=== PATIENT | male | born 1960 | race African-American/Black ===

== ENCOUNTER 2016-07-26 23:18 | Emergency (ER) | payer OTHER ==
[~2016-07-26] VITALS: Ht 167.6 cm; Wt 91.2 kg
[2016-07-26] MEDS ORDERED: LISINOPRIL10 MG ORAL (23:29)
[2016-07-26] MEDS ORDERED: METFORMIN HCL500 M1 ORAL (23:29)
[2016-07-26 23:30] VITALS: BP 136/85
[2016-07-27 00:29] LABS: APPEARANCE,URINE CLEAR; KETONES,URINE NEGATIVE (NEGATIVE); LEUKOCYTE ESTERASE ,URINE NEGATIVE (NEGATIVE); NITRITE,URINE NEGATIVE (NEGATIVE); PH,URINE 6 (4.5-8.0); PROTEIN,URINE NEGATIVE (NEGATIVE); UROBILINOGEN,URINE NORMAL MG/DL (0.0-1.0)
[2016-07-27] MEDS ORDERED: Mylanta II UD 30ml ORAL ONE (00:30)
[2016-07-27] MEDS ORDERED: PEPCID20 MG ORAL (01:05)
[2016-07-27 01:20] VITALS: BP 138/79
--- NOTE | 2016-07-27 02:25 | Emergency Room Report ---
History of Present Illness General Chief Complaint: Abdominal Pain Source: Patient Present Illness HPI [id number] here for "STD check" after condom broke 3 weeks ago. Denies previous history of STDs, dysuria, discharge, polyuria. Allergies: Coded Allergies: No Known Allergies (Unverified , 07/26/16) Patient History Past Medical History: none Past Surgical History: none Pertinent Family History: none Social History: Denies: alcohol use, drug use, smoking Immunizations: UTD Reviewed Nursing Documentation: PMH: Agreed, PSxH: Agreed Nursing Documentation-PMH Past Medical History: No History, Except For Hx Hypertension: Yes Review of Systems All Other Systems: negative except mentioned in HPI Physical Exam Vital Signs Date Time Temp Pulse Resp B/P Pulse Ox O2 Delivery O2 Flow Rate FiO2 07/26/16 23:22 98.4 89 16 136/85 95 Room Air Sp02 EP Interpretation: reviewed, normal General Appearance: normal inspection, well appearing, no apparent distress, alert Head: atraumatic ENT: normal ENT inspection, hearing grossly normal, normal voice Neck: normal inspection, full range of motion, supple, no bony tend Respiratory: normal inspection, lungs clear, normal breath sounds, no respiratory distress, no retraction, no wheezing Cardiovascular #1: regular rate, rhythm, no edema Gastrointestinal: normal inspection, normal bowel sounds, non tender, soft, no guarding, no hernia Genitourinary: no CVA tenderness Musculoskeletal: normal inspection, back normal, normal range of motion, Velasquez' s Sign negative Neurologic: normal inspection, alert, oriented x3, responsive, book mender III-XII nml as tested, speech normal Psychiatric: normal inspection, judgement/insight normal, mood/affect normal Skin: normal inspection, normal color, no rash Lymphatic: normal inspection Medical Decision Making Diagnostic Impression: Primary Impression: Abdominal pain Qualified Codes: R10.84 - Generalized abdominal pain Additional Impression: Possible exposure to STD ER Course UA grossly negative Asymptomatic Advised to go to STD clinic or PMD On DC, mentions today stomach discomfort after taking motrin. Associated with bloating, gas. No actual abd pain, nausea/vomiting On exam, non-tender, non-focal PO Maalox, pepcid given in ED with improvement Rx pepcid DC home Last Vital Signs Date Time Temp Pulse Resp B/P Pulse Ox O2 Delivery O2 Flow Rate FiO2 07/27/16 01:20 98.4 84 15 138/79 95 Room Air Status: improved Disposition: HOME, SELF-CARE Condition: Improved Scripts Famotidine (PEPCID) 20 Mg Tablet 20 MG ORAL BID for 7 Days, #14 TAB 0 Refills Prov: BERTA HI M.D. 07/27/16 Patient Instructions: Viral Gastroenteritis, Adult BERTA HI M.D. Jul 27, 2016 02:25
== END 2016-07-27 01:20 | disposition home or self-care (01) ==
LOC: EMR 23:55
DX: R10.9 Unspecified abdominal pain (principal); R14.0 Abdominal distension (gaseous); I10 Essential (primary) hypertension; Z04.8 Encounter for examination and observation for other specified reasons
CPT/HCPCS: 81003; 99283